=== PATIENT | male | born 1965 | race Caucasian/White ===

== ENCOUNTER → 2018-09-12 | Day surgery (SDC) | payer OTHER | END | disposition home or self-care (01) | LOC: ADM 09-02 12:00 → AMB-ENDOS 06:39 | DX: C20 Malignant neoplasm of rectum (principal); Z12.11 Encounter for screening for malignant neoplasm of colon ==

== ENCOUNTER 2020-11-11 08:50 | Day surgery (SDC) | payer OTHER | END 2020-11-11 13:35 | disposition home or self-care (01) | LOC: CIR.AMB 08:50 | PROVIDERS: ATTEND Colon & Rectal Surgery | DX: D12.2 Benign neoplasm of ascending colon (principal); Z20.822 Contact with and (suspected) exposure to COVID-19; Z12.11 Encounter for screening for malignant neoplasm of colon ==